=== PATIENT | female | born 1995 ===

== ENCOUNTER 2021-05-15 18:09 | Emergency (ER) | payer SELFPAY ==
[~2021-05-15] VITALS: Ht 157.5 cm; Wt 60.0 kg
--- NOTE | 2021-05-15 18:20 | NUR ---
BIBA FOR CONSTIPATION. PER PT SHE HASNT HAD A BM 6 DAYS AGO. HX OF IV HERION AND METH. PT POSTIONED TO COMFORT IN BED. ATTACHED TO MONITORS. VSS. NADN. AWAITING ORDERS
--- NOTE | 2021-05-15 18:54 | NUR ---
BEDSIDE REPORT RECEIVED FROM ELKIN PECK
--- NOTE | 2021-05-15 20:00 | NUR ---
FLEETS ENEMA COMPLETE. PT TOLERATED WELL. MINIMAL STOOL OUTPUT REPORTED BY PT. PT CONTINUALLY SITTING ON BEDSIDE COMMODE YELLING AND SCREAMING "I JUST NEED TO POOP, I AM PUSHING AND ONLY POOPING A LITTLE."
[2021-05-15 21:12] VITALS: BP 119/68
--- NOTE | 2021-05-15 21:12 | NUR ---
Patient given discharge instructions and they have confirmed that they understand the instructions. Patient ambulatory with steady gait. NAD, all questions answered appropriately, denies additional needs at this time. No personal belongings left in room after discharge.
== END 2021-05-15 21:14 | disposition home or self-care (01) ==
LOC: ED 18:30
DX: R10.84 Generalized abdominal pain (principal); K59.00 Constipation, unspecified
CPT/HCPCS: 74018; 99283